=== PATIENT | female | born 1990 | race Caucasian/White ===

== ENCOUNTER 2022-12-12 01:51 | Inpatient (IN) | payer OTHER, SELFPAY ==
[2022-12-12] MEDS ORDERED: Ketorolac Tromethamine 30 MG/ML VIAL ONE (03:25)
[2022-12-12] MEDS ORDERED: Ibuprofen 400 MG TAB PO PRN (03:48)
[2022-12-12] MEDS: Lactated Ringer's 1,000 ML IV SCH ×2 (04:22→20:30)
[2022-12-12] MEDS: cefTRIAXone\\ROCEPHIN 1 GM in Sodium Chloride 0.9% 100 ML IVPB SCH (05:08)
[2022-12-12] MEDS: metroNIDAZOLE 500 MG in Premix Bag 1 BAG IVPB SCH ×2 (08:37→20:59)
[2022-12-12] MEDS ORDERED: Lisdexamfetamine Dimesylate 20 MG CAPSULE PO SCH (09:00)
[2022-12-12] MEDS: Morphine 2 MG/ML VIAL SLOW IVP PRN ×2 (09:44→19:35)
[2022-12-12] MEDS: lamoTRIgine 25 MG TAB PO SCH (10:47)
[2022-12-12] MEDS: Doxycycline 100 MG CAP PO SCH ×2 (10:47→20:57)
[2022-12-12] MEDS: Ibuprofen 400 MG TAB PO PRN (14:23)
[2022-12-13 04:32] LABS: #Eosinphils 0.2 10x3/uL (0.0-0.5); #Monocytes 1.1 10x3/uL (0.0-1.1); #Neutrophils 10.8 10x3/uL (1.5-8.4); %Basophils 0.2 % (0.0-2.0); %Eosinophils 1.3 % (0.0-6.0); %Lymphocytes 11.5 % (18.0-47.0); %Monocytes 7.8 % (0.0-10.0); %Neutrophils 78.5 % (40.0-75.0); Hemoglobin 10.8 g/dL (12.0-15.5); Mean Corpuscular HGB CONC 33.9 g/dL (32.0-36.0); Mean Corpuscular Volume 85.8 fl (81.6-98.3); Platelet Count 267 10x3/uL (150-450); RBC Distribution Width 12.2 % (11.5-14.5); Red Blood Cell (RBC) Count 3.72 10x6/uL (3.90-5.03); White Blood Cell (WBC) Count 13.8 10x3/uL (3.5-10.5)
[2022-12-13 04:43] LABS: ALT (SGPT) 17 U/L (8-55); AST (SGOT) 13 U/L (5-34); Albumin 3.1 g/dL (3.5-5.0); Alkaline Phosphatase 56 U/L (40-110); Anion Gap 10 mmol/L (10-20); BUN (Urea Nitrogen) 10 mg/dL (7.0-18.7); Bilirubin, Total 0.2 mg/dL (0.2-1.2); Calc. Creatinine Clearance 0 mL/min (70-130); Calcium 8.4 mg/dL (7.8-10.44); Carbon Dioxide 25 mmol/L (22-29); Chloride 106 mmol/L (98-107); Estimated GFR 113; Globulin 2.2 g/dL (2.4-3.5); Glucose 112 mg/dL (70-105); Potassium 3.7 mmol/L (3.5-5.1); Protein, Total 5.3 g/dL (6.0-8.3); Sodium 137 mmol/L (136-145)
[2022-12-13] MEDS: cefTRIAXone\\ROCEPHIN 1 GM in Sodium Chloride 0.9% 100 ML IVPB SCH (04:56)
[2022-12-13] MEDS: Morphine 2 MG/ML VIAL SLOW IVP PRN (05:20)
[2022-12-13] MEDS: Doxycycline 100 MG CAP PO SCH ×2 (08:34→20:26)
[2022-12-13] MEDS: metroNIDAZOLE 500 MG in Premix Bag 1 BAG IVPB SCH ×2 (08:34→20:26)
[2022-12-13] MEDS: lamoTRIgine 25 MG TAB PO SCH (08:34)
[2022-12-13] MEDS: Ibuprofen 400 MG TAB PO PRN (08:48)
[2022-12-13] MEDS ORDERED: Ondansetron PF 4 MG/2 ML Vial IVP PRN (09:10)
[2022-12-13] MEDS: Lactated Ringer's 1,000 ML IV SCH (15:44)
[2022-12-13] MEDS: HYDROcodone/Acetaminophen 5/325 mg Tablet PO PRN ×2 (15:59→19:59)
[2022-12-14] MEDS: cefTRIAXone\\ROCEPHIN 1 GM in Sodium Chloride 0.9% 100 ML IVPB SCH (04:41)
[2022-12-14 08:06] VITALS: BP 134/85; TEMP 97.9
[2022-12-14 08:06] LABS: HIV (1/2) Antibody/Antigen Non-Reactive (NonReactive); HIV 1/2 INDEX 0.06 S/CO (<1.00)
[2022-12-14 08:08] LABS: Syphilis Antibody Nonreactive (Nonreactive); Syphilis Antibody Index 0.05 S/CO (<1.00 Non-Reactive)
[2022-12-14] MEDS: lamoTRIgine 25 MG TAB PO SCH (08:25)
[2022-12-14] MEDS: Doxycycline 100 MG CAP PO SCH (08:25)
[2022-12-14] MEDS: HYDROcodone/Acetaminophen 5/325 mg Tablet PO PRN (08:29)
[2022-12-14] MEDS ORDERED: metroNIDAZOLE 500 MG TAB PO SCH (09:00)
== END 2022-12-14 10:00 | disposition home or self-care (01) | DRG 759 ==
LOC: CSHERS 01:51 → CSHPP 04:03
PROVIDERS: ADMIT Obstetrics & Gynecology; ATTEND Obstetrics & Gynecology
PROC: 0UPD7HZ Removal of Contraceptive Device from Uterus and Cervix, Via Natural or Artificial Opening (ICD-10-PCS; principal; 2022-12-12)
DX: N73.9 Female pelvic inflammatory disease, unspecified (principal); N83.202 Unspecified ovarian cyst, left side; Z91.040 Latex allergy status; Z88.8 Allergy status to other drugs, medicaments and biological substances; F41.9 Anxiety disorder, unspecified; F32.A Depression, unspecified; F43.10 Post-traumatic stress disorder, unspecified; Z90.49 Acquired absence of other specified parts of digestive tract; Z90.89 Acquired absence of other organs; Z82.49 Family history of ischemic heart disease and other diseases of the circulatory system; Z83.3 Family history of diabetes mellitus; F17.210 Nicotine dependence, cigarettes, uncomplicated; D72.829 Elevated white blood cell count, unspecified
CPT/HCPCS: 36415; 74177; 76856; 80053; 81001; 81025; 83605; 83690; 84703; 85025; 85610; 85730; 86780; 87040; 87389; 87480; 87491; 87510; 87591; 87660; 87661; 88300; 94760; 96361; 96365; 96367; 96374; 96375; 96376; J0696; J1885; J2270; J2272; J2405; J3490; J7120; Q9967